=== PATIENT | female | born 1985 | race African-American/Black ===

== ENCOUNTER 2022-07-08 00:47 | Emergency (ER) | payer MEDICARE ==
[~2022-07-08] VITALS: Ht 165.1 cm; Wt 78.6 kg
[2022-07-08 01:15] VITALS: BP 140/79
[2022-07-08] MEDS ORDERED: NIRM1TAB4 PO (10:27)
== END 2022-07-08 10:42 | disposition home or self-care (01) ==
LOC: ER 00:47
DX: U07.1 COVID-19 (principal); J45.901 Unspecified asthma with (acute) exacerbation; E11.9 Type 2 diabetes mellitus without complications
CPT/HCPCS: 71046; 87426; 87804; 99284; C9803

== ENCOUNTER 2022-08-17 15:21 | Emergency (ER) | payer MEDICAID, MEDICARE ==
[~2022-08-17] VITALS: Ht 149.9 cm; Wt 68.0 kg
[~2022-08-17 15:21] MED LIST: NIRM1TAB4 PO
[2022-08-17 15:33] VITALS: BP 136/80
[2022-08-17] MEDS ORDERED: IBUPROFEN 400MG TABLET PO ONE (18:00)
[2022-08-17] MEDS ORDERED: ACETAMINOPHEN 325MG TABLET PO ONE (18:00)
[2022-08-17] MEDS ORDERED: TOPUD MT (18:36)
== END 2022-08-17 18:56 | disposition home or self-care (01) ==
LOC: ER 15:39
DX: M79.642 Pain in left hand (principal); E11.9 Type 2 diabetes mellitus without complications; G62.9 Polyneuropathy, unspecified; J45.909 Unspecified asthma, uncomplicated
CPT/HCPCS: 29125; 73120; 81025; 82962; 99283